=== PATIENT | female | born 1940 | race Caucasian/White ===

== ENCOUNTER → 2016-09-29 | Outpatient (CLI) | payer MEDICARE, OTHER | LOC: RAD 15:14 | DX: R05 Cough (principal) | CPT/HCPCS: 71020 ==

== ENCOUNTER 2016-11-21 22:17 | Emergency (ER) | payer MEDICARE, OTHER ==
[2016-11-22 00:31] LABS: HEMOGLOBIN 15.8 gm/dl (12.3-15.3); RED BLOOD COUNT 5.43 M/UL (4.00-5.10); WHITE BLOOD COUNT 12.3 K/UL (4.5-11.0)
[2016-11-22 00:42] LABS: BUN/CREATININE RATIO 21 (0-10)
== END 2016-11-22 03:30 | disposition home or self-care (01) ==
LOC: ER1 22:17
PROVIDERS: Student in an Organized Health Care Education/Training Program
DX: K52.9 Noninfective gastroenteritis and colitis, unspecified (principal); I10 Essential (primary) hypertension; E78.5 Hyperlipidemia, unspecified; Z87.891 Personal history of nicotine dependence; Z90.49 Acquired absence of other specified parts of digestive tract; Z79.899 Other long term (current) drug therapy; Z88.0 Allergy status to penicillin; Z88.5 Allergy status to narcotic agent; Z88.6 Allergy status to analgesic agent
CPT/HCPCS: 80053; 81001; 83605; 83690; 85025; 87086; 96374; 99284; J2405; J7030; J7050; Q9962

== ENCOUNTER 2022-01-29 23:26 | Inpatient (IN) | payer MEDICARE, OTHER ==
[~2022-01-29] VITALS: Ht 157.5 cm; Wt 73.5 kg
[2022-01-29 23:53] LABS: HEMOGLOBIN 14.9 gm/dl (12.3-15.3); RED BLOOD COUNT 5.14 M/UL (4.00-5.10); WHITE BLOOD COUNT 16.3 K/UL (4.5-11.0)
[2022-01-30 00:22] LABS: BUN/CREATININE RATIO 15 (0-10)
[2022-01-30] MEDS ORDERED: SYNTHROID75 MCG PO (09:51)
[2022-01-30] MEDS ORDERED: ZOFRAN ODT 4 MG4 MG PO (09:52)
[2022-01-30] MEDS ORDERED: LORATADINE10 MG PO (09:52)
[2022-01-30] MEDS ORDERED: MIRALAX17 GM PO (09:52)
[2022-01-30] MEDS ORDERED: METOPROLOL TART25 MG PO (09:52)
== END 2022-01-30 13:50 | disposition home or self-care (01) | DRG 390 ==
LOC: ER1 23:26 → M/S 01-30 03:10 → CDU 01-30 03:10 → M/S 01-30 06:27
PROVIDERS: Family Medicine; ADMIT Student in an Organized Health Care Education/Training Program
DX: K56.50 Intestinal adhesions [bands], unspecified as to partial versus complete obstruction (principal); I10 Essential (primary) hypertension; E03.9 Hypothyroidism, unspecified; Z85.038 Personal history of other malignant neoplasm of large intestine; K59.00 Constipation, unspecified; Z90.49 Acquired absence of other specified parts of digestive tract; Z90.710 Acquired absence of both cervix and uterus; Z88.6 Allergy status to analgesic agent; Z88.5 Allergy status to narcotic agent; Z88.0 Allergy status to penicillin
CPT/HCPCS: 80053; 81001; 82550; 82553; 83605; 83690; 84484; 85025; 87086; 93005; 96361; 96374; 96375; 99285; J1170; J2405; Q9967